=== PATIENT | male | born 1990 | race Caucasian/White ===

== ENCOUNTER 2022-06-19 20:45 | Emergency (ER) | payer BC ==
[~2022-06-19] VITALS: Ht 172.7 cm; Wt 86.0 kg
[~2022-06-19 20:45] MED LIST: BENADRYL 50MG C50 MG PO; EPIPEN0.3 MG IM; MEDDOSEPAK PO; PEPCID20 MG PO
[2022-06-19 21:48] VITALS: BP 138/101
[2022-06-19 22:00] VITALS: BP 142/91
[2022-06-19 22:15] VITALS: BP 131/85
[2022-06-19 22:30] VITALS: BP 132/91
[2022-06-19] MEDS ORDERED: PREDNISONE50 MG PO (22:31)
[2022-06-19] MEDS ORDERED: EPIPEN 2-P0.3 MG/0.3 SC (22:32)
[2022-06-19 22:45] VITALS: BP 124/83
[2022-06-19 23:20] VITALS: BP 124/83
== END 2022-06-19 23:22 | disposition home or self-care (01) | DRG 923 ==
LOC: ED 20:45
DX: T78.1XXA Other adverse food reactions, not elsewhere classified, initial encounter (principal); X58.XXXA Exposure to other specified factors, initial encounter